=== PATIENT | male | born 1960 | race Caucasian/White ===

== ENCOUNTER 2017-05-02 14:26 | Emergency (ER) | payer BC, OTHER ==
[~2017-05-02] VITALS: Ht 175.3 cm; Wt 94.0 kg
[~2017-05-02 14:26] MED LIST: CELE200C PO; DULO20 PO; GABA400C5 PO; LISI-360 PO; TIZA4 PO
[2017-05-02 14:28] VITALS: BP 159/85; PULSE 91; RESP 18; TEMP 99; O2SAT 96
--- NOTE | 2017-05-02 15:11 | PD ---
Physical Exam Time Seen by Provider: 15:10 Narrative Pt presents to the ED for evaluation of right shoulder pain for several years that worsened over the last 2 days. States he cannot move his right shoulder due to pain. No new injury or trauma. States he took Tramadol without improvement of symptoms. VSS. Awaiting bed placement. Data Data Last Documented VS Vital Signs Date Time Temp Pulse Resp B/P Pulse Ox O2 Delivery O2 Flow Rate FiO2 05/02/17 14:28 99.0 91 18 159/85 96 Room Air MDM Supervised Visit with AUBREE: Sparkle Coe May 02, 2017 15:11
--- NOTE | 2017-05-02 15:37 | PD ---
HPI Chief Complaint: Musculoskeletal Complaint Time Seen by Provider: 15:35 Travel History International Travel<30 days: No Contact w/Intl Traveler<30days: No Traveled to known affect area: No History of Present Illness HPI 56-year-old male presents to emergency Department with complaint of worsening of right shoulder pain over the past 2-3 days. He has history of chronic right shoulder pain 2 years which he follows with Dr. Jimenez and his been told he needs a complete right shoulder replacement. Today while at work he had an to stop early because he could no longer lift right shoulder or arm. He denies paresthesias, loss of sensation to the affected extremity. Reports decreased range of motion and strength. Took a tramadol earlier this morning for symptom management. She does not take any other medications or tried any other treatments to alleviate his symptoms. Denies fever, vomiting. Has no other medical complaints. No other modifying factors or associated signs and symptoms. PFSH Past Medical History Arthritis: Yes Asthma: No Autoimmune Disease: No Blood Disorders: No Anxiety: Yes Depression: Yes Heart Rhythm Problems: No Cancer: No Cardiovascular Problems: Yes High Cholesterol: Yes Chemotherapy: No Chest Pain: No Congestive Heart Failure: No COPD: No Cerebrovascular Accident: No Diabetes: No Diminished Hearing: No Endocrine: No Gastrointestinal Disorders: Yes GERD: Yes Genitourinary: No Hepatitis: No Hiatal Hernia: Yes Hypertension: Yes Immune Disorder: No Implanted Vascular Access Dvce: Yes Kidney Stones: No Musculoskeletal: Yes Neurologic: Yes Psychiatric: Yes Reproductive: No Respiratory: No Migraines: Yes Radiation Therapy: No Renal Failure: No Seizures: No Sickle Cell Disease: No Sleep Apnea: No Thyroid Disease: No Ulcer: No Past Surgical History Abdominal Surgery: No AICD: No Arteriovenous Shunt: No Body Medical Devices: R HIP REPLACEMENT, FRANCA KNEE REPLACEMENT Cardiac Surgery: No Ear Surgery: No Endocrine Surgery: No Eye Surgery: No Genitourinary Surgery: No Gynecologic Surgery: No Insulin Pump: No Joint Replacement: Yes (RIGHT TOTAL HIP, BILATERAL TOTAL KNEE) Neurologic Surgery: No Oral Surgery: Yes (DENTAL IMPLANTS) Pacemaker: No Thoracic Surgery: No Other Surgery: Yes (franca knee replacement, r hip replacement) Social History Alcohol Use: Yes (DAILY) Tobacco Use: No Substance Use: Yes (LAST MONTH) Allergies-Medications (Allergen,Severity, Reaction): Coded Allergies: Acetaminophen (Verified Allergy, Intermediate, ABD PAIN, 08/01/16) Reported Meds & Prescriptions Reported Meds & Active Scripts Active [place] (Hydrocodone-Acetaminophen) 5-325 mg Tab 1 Tab PO Q4H PRN Ibuprofen 800 Mg Tab 800 Mg PO Q8H PRN Robaxin (Methocarbamol) 500 Mg Tab 500 Mg PO QID PRN Reported Cymbalta (Duloxetine HCl) 20 Mg Cap 20 Mg PO DAILY Lisinopril 10 mg (Lisinopril) 10 Mg Tab 1 Tab PO DAILY Celebrex (Celecoxib) 200 Mg Cap 400 Mg PO Gabapentin 400 Mg Cap 400 Mg PO TID Zanaflex 4 mg (Tizanidine HCl) 4 Mg Tab 1 Tab PO TID Review of Systems Except as stated in HPI: all other systems reviewed are Neg Physical Exam Narrative GENERAL: Well-nourished, well-developed male patient, in no acute distress SKIN: Warm and dry. HEAD: Atraumatic. Normocephalic. EYES: Pupils equal and round. No scleral icterus. No injection or drainage. ENT: Mucosa pink and moist. Airway patent. NECK: Supple. Trachea midline. CARDIOVASCULAR: Regular rate. RESPIRATORY: No accessory muscle use. GASTROINTESTINAL: Flat. MUSCULOSKELETAL: No obvious deformities. No clubbing. No cyanosis. No edema. Right shoulder with decreased range of motion; less than 45 abduction; right shoulder with decreased muscle tone and patient unable to perform range of motion; decreased blood donor unit assistant strength; shoulders equal; decreased strength. Right upper extremity supple and non-tense. 2+ radial pulse and sensory intact. NEUROLOGICAL: Awake and alert. Oriented 3. No obvious cranial nerve deficits. Motor grossly within normal limits. Normal speech. PSYCHIATRIC: Appropriate mood and affect; insight and judgment normal. Data Data Last Documented VS Vital Signs Date Time Temp Pulse Resp B/P Pulse Ox O2 Delivery O2 Flow Rate FiO2 05/02/17 14:28 99.0 91 18 159/85 96 Room Air Orders Shoulder, Complete (>2vws) (05/02/17 15:33) Ketorolac Inj (Toradol Inj) (05/02/17 15:45) Orphenadrine Inj (Norflex Inj) (05/02/17 15:45) Sling Cradle Arm (05/02/17 ) Sling Cradle Arm (05/02/17 ) MDM Medical Decision Making Medical Screen Exam Complete: Yes Emergency Medical Condition: Yes Medical Record Reviewed: Yes Differential Diagnosis Joint separation, rotator cuff tear, ligament tear Narrative Course 56-year-old male with increasing right shoulder pain x2-3 days. He has had chronic shoulder pain for 2 years. He now has decreased range of motion and strength to the affected extremity. I will do an x-ray to rule out joint separation. Toradol and Norflex administered in the ER. Right shoulder x-ray ordered. 1615: Right shoulder x-ray concludes: 4 views of the shoulder reveals deformity of the humeral head degenerative changes in the glenoid. Calcified lymph nodes are noted; There is evidence for second degree A/C separation Shoulder X-Ray 05/02/17 1533 Signed Impressions: Service Date/Time: Tuesday, May 02, 2017 15:45 - CONCLUSION: Degenerative changes as described above. There is no acute fracture. Ender Mao MD FACR I discussed the findings with Dr. Castro, my attending physician, and she recommended arm sling and for the patient to follow up outpatient. Arm sling provided for support. Instructed patient to follow up with orthopedics. [place] , ibuprofen, Robaxin prescribed for home. Instructed patient to follow up with primary care provider. Patient verbalizes understanding and agreement with treatment plan. Patient is medically cleared and stable for discharge. Discussed reasons to return to the emergency department. Patient agrees with treatment plan. The patients vital signs are stable and the patient is stable for outpatient follow-up and treatment. Patient discharged home, stable and in no acute distress. Diagnosis Primary Impression: Right shoulder injury Qualified Code: S49.91XA - Right shoulder injury, initial encounter Referrals: Orthopaedic Surgeon Primary Care Physician Patient Instructions: General Instructions, Shoulder Pain (ED), Shoulder Sprain (ED) Additional Instructions: Tylenol or ibuprofen as needed and as directed to reduce pain and inflammation Rest, ice, and compress extremity to decrease pain and inflammation Arm sling for support Avoid aggravating activity; increase activity as tolerated Follow-up with primary care provider Follow-up with orthopedic surgeon Return to the emergency department immediately with worsening symptoms Med/Other Pt SpecificInfo: Prescription(s) given Scripts Hydrocodone-Acetaminophen ([place])5-325 mg Tab1 Tab PO Q4H PRN (PAIN) #15 TAB Ref 0 Prov:Irasema Castro MD 05/02/17 Ibuprofen 800 Mg [id number] Mg PO Q8H PRN (PAIN SCALE 1 TO 10) #30 TAB Ref 0 Prov:Sparkle Frankel 05/02/17 Methocarbamol (Robaxin)500 Mg [id number] Mg PO QID PRN (MUSCLE SPASM) #30 TAB Ref 0 Prov:Sparkle Frankel 05/02/17 Disposition: 01 DISCHARGE HOME Condition: Stable Sparkle Frankel May 02, 2017 15:37
[2017-05-02] MEDS ORDERED: KETOROLAC TROMETHAMINE 60 MG/2 ML (IM) VIAL IM ONE (15:45)
[2017-05-02] MEDS ORDERED: ORPHENADRINE INJ 60 MG/2 ML AMP IM ONE (15:45)
--- NOTE | 2017-05-02 16:06 | RADRPT ---
EXAM DATE/TIME: 05/02/2017 15:45 [facility] COMPARISON: No previous studies available for comparison. INDICATIONS : Right shoulder pain for a very long time with no new injury. MEDICAL HISTORY : Hypertension. SURGICAL HISTORY : None. ENCOUNTER: Initial ACUITY: >1 year PAIN SCORE: 10/10 LOCATION: Right shoulder FINDINGS: 4 views of the shoulder reveals deformity of the humeral head degenerative changes in the glenoid. C alcified lymph nodes are noted. There is evidence for second degree A/C separation. The lung apex is clear. CONCLUSION: Degenerative changes as described above. There is no acute fracture. Ender Mao MD FACR on May 02, 2017 at 16:03 Board Certified Radiologist. This report was verified electronically.
[2017-05-02] MEDS ORDERED: IBUP800T23 PO (16:23)
[2017-05-02] MEDS ORDERED: ROBA500T PO (16:23)
[2017-05-02] MEDS ORDERED: NORC5TAB PO (16:24)
== END 2017-05-02 16:54 | disposition home or self-care (01) ==
LOC: NEPK 14:26
DX: S49.91XA Unspecified injury of right shoulder and upper arm, initial encounter (principal); Z96.653 Presence of artificial knee joint, bilateral; Z96.641 Presence of right artificial hip joint; F10.10 Alcohol abuse, uncomplicated; F41.8 Other specified anxiety disorders; E78.00 Pure hypercholesterolemia, unspecified; I10 Essential (primary) hypertension; F19.90 Other psychoactive substance use, unspecified, uncomplicated
CPT/HCPCS: 73030; 96372; 99284; J1885; J2360

== ENCOUNTER 2018-04-07 22:07 | Emergency (ER) | payer BC ==
[~2018-04-07] VITALS: Ht 175.3 cm; Wt 95.0 kg
[~2018-04-07 22:07] MED LIST changes: +IBUP1TAB7 PO; +NORC5TAB PO; +ROBA500T PO
[2018-04-07 22:44] VITALS: BP 155/95; PULSE 69; RESP 18; TEMP 98.9; O2SAT 98
[2018-04-07] MEDS ORDERED: KETOROLAC TROMETHAMINE 60 MG/2 ML (IM) VIAL IM ONE (23:15)
[2018-04-07] MEDS ORDERED: DEXAMETHASONE SOD PHOS 20 MG/5 ML VIAL IM ONE (23:15)
[2018-04-07] MEDS: traMADol HCL 50 MG TAB PO ONE (23:21)
[2018-04-07] MEDS ORDERED: ONDANSETRON ODT 4 MG TAB PO ONE (23:30)
--- NOTE | 2018-04-07 23:38 | PD ---
HPI Chief Complaint: Back/ Neck Pain or Injury Time Seen by Provider: 23:01 Travel History International Travel<30 days: No Contact w/Intl Traveler<30days: No Traveled to known affect area: No History of Present Illness HPI Patient is a 57-year-old male who presents the emergency room with his for evaluation of chronic back and neck pain. Patient reports that he has been having upper back pain as well as shoulder pain which has been ongoing since he was 19 years old. 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 Reports that he does follow-up with his orthopedic surgeon , Dr. Jimenez who recommended bilateral shoulder replacement. Patient reports that he is unable to have these bilateral shoulder replacements at this time. Reports that he has been taking tramadol for his pain. Patient reports that 2 days ago, he ran out of his tramadol, reports that since then, he has had exacerbation of his pain. Patient denies any inciting trauma or injury which causes this acute on chronic exacerbation of his neck and back pain and shoulder pain. Patient is unsure if he lifted something heavy which exacerbated his pain. Patient denies any fever/chills. Denies IVDA. Reports history of opiate abuse in the past he does not want any narcotic pain medications. PFSH Past Medical History Arthritis: Yes Asthma: No Autoimmune Disease: No Blood Disorders: No Anxiety: Yes Depression: Yes Heart Rhythm Problems: No Cancer: No Cardiovascular Problems: Yes High Cholesterol: Yes Chemotherapy: No Chest Pain: No Congestive Heart Failure: No COPD: No Cerebrovascular Accident: No Diabetes: No Diminished Hearing: No Endocrine: No Gastrointestinal Disorders: Yes GERD: Yes Genitourinary: No Hepatitis: No Hiatal Hernia: Yes Hypertension: Yes Immune Disorder: No Implanted Vascular Access Dvce: Yes Kidney Stones: No Musculoskeletal: Yes Neurologic: Yes Psychiatric: Yes Reproductive: No Respiratory: No Migraines: Yes Radiation Therapy: No Renal Failure: No Seizures: No Sickle Cell Disease: No Sleep Apnea: No Thyroid Disease: No Ulcer: No Tetanus Vaccination: < 5 Years Past Surgical History Abdominal Surgery: No AICD: No Arteriovenous Shunt: No Body Medical Devices: R HIP REPLACEMENT, FRANCA KNEE REPLACEMENT Cardiac Surgery: No Ear Surgery: No Endocrine Surgery: No Eye Surgery: No Genitourinary Surgery: No Gynecologic Surgery: No Insulin Pump: No Joint Replacement: Yes (RIGHT TOTAL HIP, BILATERAL TOTAL KNEE) Neurologic Surgery: No Oral Surgery: Yes (DENTAL IMPLANTS) Pacemaker: No Thoracic Surgery: No Other Surgery: Yes (franca knee replacement, r hip replacement) Social History Alcohol Use: Yes (occasionally) Tobacco Use: No (smokeless tobacco) Substance Use: No Allergies-Medications (Allergen,Severity, Reaction): Coded Allergies: acetaminophen (Unverified Allergy, Intermediate, ABD PAIN, 04/07/18) Reported Meds & Prescriptions Reported Meds & Active Scripts Active [place] (Hydrocodone-Acetaminophen) 5-325 mg Tab 1 Tab PO Q4H PRN Ibuprofen 800 Mg Tab 800 Mg PO Q8H PRN Robaxin (Methocarbamol) 500 Mg Tab 500 Mg PO QID PRN Reported Cymbalta (Duloxetine HCl) 20 Mg Cap 20 Mg PO DAILY Lisinopril 10 mg (Lisinopril) 10 Mg Tab 1 Tab PO DAILY Celebrex (Celecoxib) 200 Mg Cap 400 Mg PO Gabapentin 400 Mg Cap 400 Mg PO TID Zanaflex 4 mg (Tizanidine HCl) 4 Mg Tab 1 Tab PO TID Review of Systems General / Constitutional: No: Fever Eyes: No: Visual changes HENT: No: Headaches Cardiovascular: No: Chest Pain or Discomfort Respiratory: No: Shortness of Breath Gastrointestinal: No: Abdominal Pain Genitourinary: No: Dysuria Musculoskeletal: Positive: Pain (pain to shoulders, neck and upper back) Skin: No Rash Neurologic: No: Weakness Psychiatric: No: Depression Endocrine: No: Polydipsia Hematologic/Lymphatic: No: Easy Bruising Physical Exam Narrative GENERAL: Moderate distress SKIN: Focused skin assessment warm/dry. HEAD: Atraumatic. Normocephalic. EYES: Pupils equal and round. No scleral icterus. No injection or drainage. ENT: No nasal bleeding or discharge. Mucous membranes pink and moist. NECK: Trachea midline. No JVD. Patient with no midline tenderness, patient does have bilateral paraspinal tenderness. CARDIOVASCULAR: Regular rate and rhythm. No murmur appreciated. RESPIRATORY: No accessory muscle use. Clear to auscultation. Breath sounds equal bilaterally. GASTROINTESTINAL: Abdomen soft, non-tender, nondistended. Hepatic and splenic margins not palpable. MUSCULOSKELETAL: No obvious deformities. No clubbing. No cyanosis. No edema. Patient with no midline thoracic or lumbar tenderness, patient with paraspinal tenderness, patient with pain with range of motion to both shoulders, there is no obvious deformities or fractures or signs of infection. NEUROLOGICAL: Awake and alert. No obvious cranial nerve deficits. Motor grossly within normal limits. Normal speech. PSYCHIATRIC: Appropriate mood and affect; insight and judgment normal. Data Data Last Documented VS Vital Signs Date Time Temp Pulse Resp B/P (MAP) Pulse Ox O2 Delivery O2 Flow Rate FiO2 04/07/18 22:44 98.9 69 18 155/95 (115) [address] Cerv Spine W/O Contrast (04/07/18 23:13) Ct Thor Spine W/O Contrast (04/07/18 ) Ketorolac Inj (Toradol Inj) (04/07/18 23:15) Tramadol (Ultram) (04/07/18 23:15) Dexamethasone Inj (Decadron Inj) (04/07/18 23:15) Ondansetron Odt (Zofran Odt) (04/07/18 23:30) MDM Medical Decision Making Medical Screen Exam Complete: Yes Emergency Medical Condition: Yes Medical Record Reviewed: Yes Interpretation(s) Vital Signs Date Time Temp Pulse Resp B/P (MAP) Pulse Ox O2 Delivery O2 Flow Rate FiO2 04/07/18 22:44 98.9 69 18 155/95 (115) 98 Differential Diagnosis Arthritis, DJD, acute and chronic pain Narrative Course During the course of the patients emergency department visit, the patients history, examination, and differential diagnosis were reviewed with the patient. The patient was placed on a youth nutritional monitor with oximetry and frequent blood pressure monitoring. The patient was initially provided IM dexamethasone, IM Toradol, p.o. Zofran as well as tramadol Radiology studies were reviewed and remarkable for Last Impressions Cervical Spine CT 04/07/18 2313 Signed Impressions: CONCLUSION: 1. No evidence of fracture. 2. Degenerative findings. Central canal diameter within normal limits. Thoracic Spine CT 04/07/18 0000 Signed Impressions: CONCLUSION: Multilevel degenerative findings of the thoracic spine, most prominent at T10-1 1. Broad-based disc osteophyte complex and facet arthrosis at this level result s in mild central canal narrowing and moderate right neural foraminal narrowing . Patient with multilevel degenerative findings on the cervical as well as thoracic spine. Patient requests no narcotic pain medications, he is feeling better at this time. Patient will be discharged home with instructions to follow-up with his orthopedic surgeon. I will refill his prescription for his tramadol, he will return to the emergency room as needed. Patient was given copy of his studies at discharge as he will need to follow-up on all incidental findings from today. Diagnosis Primary Impression: Neck pain Additional Impressions: Degenerative joint disease Back pain Qualified Codes: M54.6 - Pain in thoracic spine; G89.29 - Other chronic pain Patient Instructions: General Instructions Additional Instructions: Please follow up with Dr. Jimenez as soon as possible Please follow up with your primary care doctor in 2-3 days Return to the ER if symptoms worsen or progress Return to the ER as needed Med/Other Pt SpecificInfo: Prescription(s) given Scripts Tramadol (Tramadol) 50 Mg Tab 50 MG PO Q6H Y for PAIN, #15 TAB 0 Refills Prov: Madison Beltran DO 04/08/18 Methylprednisolone Dosepak (Medrol Dosepak) 4 Mg Dspk 4 MG PO DIRECTED, #1 DSPK 0 Refills Per Pharmacist direction Prov: Madison Beltran DO 04/08/18 Disposition: 01 DISCHARGE HOME Condition: Stable Madison Beltran DO Apr 07, 2018 23:38
[2018-04-08] MEDS: traMADol HCL 50 MG TAB PO ONE
--- NOTE | 2018-04-08 00:16 | RADRPT ---
EXAM DATE: 04/07/2018 11:58 PM EDT AGE/SEX: 57 years / Male INDICATIONS: Chronic pain. CLINICAL DATA: This is the patient's initial encounter. Patient reports that signs and symptoms have been present for > 1 year and indicates a pain score of 10/10. MEDICAL/SURGICAL HISTORY: Hypertension. Gastroesophageal reflux disease. Cardiovascular disea se. . Bilateral knee replacements, shoulder surgery RADIATION DOSE: 19.91 CTDI (mGy) COMPARISON: No prior exams available for comparison. TECHNIQUE: Contiguous axial images were obtained using helical multirow detector technique. The vol umetric data was post-processed with multiplanar reconstruction in oblique axial, sagittal, and coron al planes. Using automated exposure control and adjustment of the mA and/or kV according to patient s ize, radiation dose was kept as low as reasonably achievable to obtain optimal diagnostic quality adolph ges. FINDINGS: Vertebrae: Normal vertebral body height. Mild bony hypertrophic change and calcification at the C1-2 articulation. Alignment: Normal. No subluxation. C2-3: Mild bilateral facet arthrosis. Central canal diameter within normal limits. Neural foraminal diameters within normal limits. C3-4: Mild bilateral facet arthrosis. Central canal diameter within normal limits. Neural foraminal diameters within normal limits. C4-5: Minimal right-sided uncovertebral joint spurring. Central canal diameter within normal limits. Neural foraminal diameters within normal limits. C5-6: Mild broad-based disc osteophyte complex with central prominence. Mild bilateral facet arthros is. Central canal diameter is within normal limits. Neural foraminal diameters within normal limits. C6-7: No evidence of focal disc protrusion. Central canal diameter within normal limits. Neural fora darren diameters within normal limits. C7-T1: No evidence of focal disc protrusion. Central canal diameter within normal limits. Neural for aminal diameters within normal limits. CONCLUSION: 1. No evidence of fracture. 2. Degenerative findings. Central canal diameter within normal limits. Electronically signed by: Luis Antonio Simms MD 04/08/2018 12:14 AM EDT
--- NOTE | 2018-04-08 00:23 | RADRPT ---
EXAM DATE: 04/08/2018 12:01 AM EDT AGE/SEX: 57 years / Male INDICATIONS: Chronic back pain. CLINICAL DATA: This is the patient's initial encounter. Patient reports that signs and symptoms have been present for > 1 year and indicates a pain score of 10/10. MEDICAL/SURGICAL HISTORY: Hypertension. Gastroesophageal reflux disease. Cardiovascular disease. . Bilateral knee replacements, shoulder surgery RADIATION DOSE: 31.06 CTDI (mGy) COMPARISON: No prior exams available for comparison. TECHNIQUE: Contiguous axial images were acquired using a multirow detector CT scanner without contra st. Multiplanar reconstruction in the sagittal and coronal planes was performed. Using automated exp osure control and adjustment of the mA and/or kV according to patient size, radiation dose was kept a s low as reasonably achievable to obtain optimal diagnostic quality images. FINDINGS: Vertebrae: Normal vertebral body height. Alignment: Normal. No subluxation. T1 - T2: Normal. T2 - T3: The thecal sac has a normal diameter. No evidence of disc bulge or protrusion. T3 - T4: Prominent right-sided costovertebral joint osteophytes. Central canal diameter within kayleigh l limits. Neural foraminal diameters within normal limits. T4 - T5: Moderate bilateral costovertebral joint osteophytes.Central canal diameter within normal li mits. Neural foraminal diameters within normal limits. T5 - T6: Moderate right-sided costovertebral joint osteophytes.Central canal diameter within normal limits. Neural foraminal diameters within normal limits. T6 - T7: Broad-based anterior endplate osteophyte and severe right-sided costovertebral joint osteop hytes. Central canal diameter within normal limits. Neural foraminal diameters within normal limits. T7 - T8: Anterior endplate osteophytes and prominent bilateral costovertebral joint osteophytes.Cent ral canal diameter within normal limits. Neural foraminal diameters within normal limits. T8 - T9: Anterior endplate osteophyte. Central canal diameter within normal limits. Neural foraminal diameters within normal limits. T9 - T10: Broad-based disc osteophyte complex and bilateral facet arthrosis. Central canal diameter within normal limits. Neural foraminal diameters within normal limits. T10 - T11: Broad-based disc osteophyte complex and bilateral facet arthrosis resulting in mild centr al canal narrowing. Moderate right neural foraminal narrowing. T11 - T12: Anterior endplate osteophyte. Central canal diameter within normal limits. Neural foramin al diameters within normal limits. T12 - L1: Anterior endplate of right. Central canal diameter within normal limits. Neural foraminal diameters within normal limits. CONCLUSION: Multilevel degenerative findings of the thoracic spine, most prominent at T10-11. Broad-based disc os teophyte complex and facet arthrosis at this level results in mild central canal narrowing and modera te right neural foraminal narrowing. Electronically signed by: Luis Antonio Simms MD 04/08/2018 12:21 AM EDT
[2018-04-08] MEDS ORDERED: MEDR4PAK PO (01:03)
[2018-04-08] MEDS ORDERED: TRAM50TA PO (01:03)
== END 2018-04-08 01:24 | disposition home or self-care (01) ==
LOC: NEPE 22:07
DX: M54.2 Cervicalgia (principal); M54.6 Pain in thoracic spine; G89.29 Other chronic pain; M19.90 Unspecified osteoarthritis, unspecified site; E78.00 Pure hypercholesterolemia, unspecified; I10 Essential (primary) hypertension; F32.9 Major depressive disorder, single episode, unspecified; Z79.899 Other long term (current) drug therapy
CPT/HCPCS: 72125; 72128; 96372; 99283; J1100; J1885

== ENCOUNTER 2018-04-17 23:49 | Observation (INO) | payer BC ==
[~2018-04-17] VITALS: Ht 170.2 cm; Wt 80.0 kg
[~2018-04-17 23:49] MED LIST changes: +MEDR4PAK PO; +TRAM50TA PO
[2018-04-17 23:58] VITALS: BP 118/73; PULSE 85; RESP 16; TEMP 98; O2SAT 98
[2018-04-18] VITALS (7 sets, daily range): BP systolic 124–143; BP diastolic 59–82; PULSE 67–84; RESP 12–24; TEMP 97.7–98.5; O2SAT 98–100
[2018-04-18] MEDS ORDERED: SODIUM CHLOR 0.9% 1000 ML INJ 1,000 ML IV SCH (00:13)
[2018-04-18] MEDS ORDERED: MORPHINE SULFATE 4 MG/ML INJ IV PUSH ONE (00:15)
[2018-04-18] MEDS ORDERED: SODIUM CHLORIDE 0.9% FLUSH 10 ML FLUSH IV FLUSH PRN ×2 (00:15→02:30)
[2018-04-18] MEDS ORDERED: ONDANSETRON ODT 4 MG TAB PO ONE ×2 (00:15→15:15)
--- NOTE | 2018-04-18 00:17 | PD ---
HPI Chief Complaint: GI Complaint Time Seen by Provider: 00:05 Travel History International Travel<30 days: No Contact w/Intl Traveler<30days: No Traveled to known affect area: No History of Present Illness HPI Patient comes in complaining of nausea vomiting and diarrhea has been going on for the past day and a half. Recently the diarrhea started to get bright red bloody. Patient has diffuse crampy abdominal pain, he rates as 7 out of 10 worse during bowel movement. Patient denies any alleviating or aggravating factors. However the patient does admit that now he has lightheadedness associated with activity such as walking. Patient denies any associated history such as syncope, chest pain, shortness of breath, runny nose/cough/sore throat. States allergy to Tylenol Past medical history significant for dental implants, migraine, hypercholesterolemia, hypertension, hiatal hernia, GERD, arthritis, depression, anxiety, PFSH Past Medical History Arthritis: Yes Asthma: No Autoimmune Disease: No Blood Disorders: No Anxiety: Yes Depression: Yes Heart Rhythm Problems: No Cancer: No Cardiovascular Problems: Yes High Cholesterol: Yes Chemotherapy: No Chest Pain: No Congestive Heart Failure: No COPD: No Cerebrovascular Accident: No Diabetes: No Diminished Hearing: No Endocrine: No Gastrointestinal Disorders: Yes GERD: Yes Genitourinary: No Hepatitis: No Hiatal Hernia: Yes Hypertension: Yes Immune Disorder: No Implanted Vascular Access Dvce: Yes Kidney Stones: No Musculoskeletal: Yes Neurologic: Yes Psychiatric: Yes Reproductive: No Respiratory: No Immunizations Current: Yes Migraines: Yes Radiation Therapy: No Renal Failure: No Seizures: No Sickle Cell Disease: No Sleep Apnea: No Thyroid Disease: No Ulcer: No Past Surgical History Abdominal Surgery: No AICD: No Arteriovenous Shunt: No Body Medical Devices: R HIP REPLACEMENT, FRANCA KNEE REPLACEMENT Cardiac Surgery: No Ear Surgery: No Endocrine Surgery: No Eye Surgery: No Genitourinary Surgery: No Gynecologic Surgery: No Insulin Pump: No Joint Replacement: Yes (RIGHT TOTAL HIP, BILATERAL TOTAL KNEE) Neurologic Surgery: No Oral Surgery: Yes (DENTAL IMPLANTS) Pacemaker: No Thoracic Surgery: No Other Surgery: Yes (franca knee replacement, r hip replacement) Social History Alcohol Use: Yes (occasionally) Tobacco Use: No (smokeless tobacco) Substance Use: No Allergies-Medications (Allergen,Severity, Reaction): Coded Allergies: acetaminophen (Unverified Allergy, Intermediate, ABD PAIN, 04/07/18) Reported Meds & Prescriptions Reported Meds & Active Scripts Active Robaxin (Methocarbamol) 500 Mg Tab 500 Mg PO QID PRN Reported Cymbalta (Duloxetine HCl) 20 Mg Cap 20 Mg PO DAILY Lisinopril 10 mg (Lisinopril) 10 Mg Tab 1 Tab PO DAILY Gabapentin 400 Mg Cap 400 Mg PO TID Zanaflex 4 mg (Tizanidine HCl) 4 Mg Tab 1 Tab PO TID Review of Systems General / Constitutional: No: Fever Eyes: No: Visual changes HENT: No: Headaches Cardiovascular: No: Chest Pain or Discomfort Respiratory: No: Shortness of Breath Gastrointestinal: Positive: Nausea, Vomiting, Diarrhea, Hematochezia Genitourinary: No: Dysuria Musculoskeletal: No: Pain Skin: No Rash Neurologic: No: Weakness Psychiatric: No: Depression Endocrine: No: Polydipsia Hematologic/Lymphatic: No: Easy Bruising Physical Exam Narrative GENERAL: SKIN: Warm and dry. HEAD: Atraumatic. Normocephalic. EYES: Pupils equal and round. No scleral icterus. No injection or drainage. ENT: No nasal bleeding or discharge. Mucous membranes pink and moist. NECK: Trachea midline. No JVD. CARDIOVASCULAR: Regular rate and rhythm. RESPIRATORY: No accessory muscle use. Clear to auscultation. Breath sounds equal bilaterally. GASTROINTESTINAL: Abdomen soft, non-tender, nondistended. MUSCULOSKELETAL: Extremities without clubbing, cyanosis, or edema. No obvious deformities. NEUROLOGICAL: Awake and alert. No obvious cranial nerve deficits. Motor grossly within normal limits. Five out of 5 muscle strength in the arms and legs. Normal speech. PSYCHIATRIC: Appropriate mood and affect; insight and judgment normal. Data Data Last Documented VS Orders Orders Complete Blood Count With Diff (04/18/18 00:13) Comprehensive Metabolic Panel (04/18/18 00:13) Lipase (04/18/18 00:13) Ct Abd/Pel W/O Iv Contrast (04/18/18:13) Iv Access Insert/Monitor (04/18/18 00:13) Ecg Monitoring (04/18/18 00:13) Oximetry (04/18/18 00:13) NPO (04/18/18 00:13) Morphine Inj (Morphine Inj) (04/18/18 00:15) Sodium Chlor 0.9% 1000 Ml Inj (Ns 1000 M (04/18/18 00:13) Sodium Chloride 0.9% Flush (Ns Flush) (04/18/18 00:15) Ondansetron Odt (Zofran Odt) (04/18/18 00:15) Ketorolac Inj (Toradol Inj) (04/18/18 00:45) Admit Order (Ed Use Only) (04/18/18 01:52) Labs Laboratory Tests Test 04/18/18 00:30 White Blood Count 7.5 TH/MM3 Red Blood Count 3.19 MIL/MM3 Hemoglobin 9.9 GM/DL Hematocrit 29.5 % Mean Corpuscular Volume 92.4 FL Mean Corpuscular Hemoglobin 31.1 PG Mean Corpuscular Hemoglobin Concent 33.6 % Red Cell Distribution Width 13.2 % Platelet Count 179 TH/MM3 Mean Platelet Volume 9.6 FL Neutrophils (%) (Auto) 57.4 % Lymphocytes (%) (Auto) 32.8 % Monocytes (%) (Auto) 7.2 % Eosinophils (%) (Auto) 1.5 % Basophils (%) (Auto) 1.1 % Neutrophils # (Auto) 4.3 TH/MM3 Lymphocytes # (Auto) 2.4 TH/MM3 Monocytes # (Auto) 0.5 TH/MM3 Eosinophils # (Auto) 0.1 TH/MM3 Basophils # (Auto) 0.1 TH/MM3 CBC Comment DIFF FINAL Differential Comment Blood Urea Nitrogen 38 MG/DL Creatinine 1.12 MG/DL Random Glucose 128 MG/DL Total Protein 4.9 GM/DL Albumin 2.5 GM/DL Calcium Level 7.0 MG/DL Alkaline Phosphatase 74 U/L Aspartate Amino Transf (AST/SGOT) 15 U/L Alanine Aminotransferase (ALT/SGPT) 25 U/L Total Bilirubin 0.2 MG/DL Sodium Level 146 MEQ/L Potassium Level 3.6 MEQ/L Chloride Level 109 MEQ/L Carbon Dioxide Level 23.7 MEQ/L Anion Gap 13 MEQ/L Estimat Glomerular Filtration Rate 67 ML/MIN Protein Corrected Calcium 8.2 MG/DL Lipase 184 U/L [facility] Medical Decision Making Medical Screen Exam Complete: Yes Emergency Medical Condition: Yes Medical Record Reviewed: Yes Differential Diagnosis GI bleed versus colitis versus diverticulitis versus enteritis Narrative Course CBC shows evidence of anemia 9.9/29.5 No leukocytosis, normal platelet count, no left shift. Patient had normal liver and pancreatic enzymes Low calcium. CT abdomen read by radiologist as a negative noncontrast study without etiology for rectal bleeding identified. Patient was admitted to observation to the medical team for further evaluation of acute GI bleed with anemia. Diagnosis Primary Impression: Acute GI bleed Additional Impression: Anemia secondary to #1 Admitting Information Admitting Physician Requests: Observation Scripts Pantoprazole (Protonix) 40 Mg Tab 40 MG PO BID for Reflux, #60 TAB 0 Refills Prov: Landry Nichols MD 04/19/18 Jeremiah George MD Apr 18, 2018 00:17
[2018-04-18] MEDS ORDERED: KETOROLAC TROMETHAMINE 30 MG/ML (IVP) VIAL IV PUSH ONE (00:45)
[2018-04-18 00:48] LABS: AUTOMATED NEUTROPHIL # 4.3 TH/MM3 (1.8-7.7); BASOPHIL # 0.1 TH/MM3 (0-0.2); BASOPHIL % 1.1 % (0.0-2.0); EOSINOPHIL # 0.1 TH/MM3 (0-0.4); EOSINOPHIL % 1.5 % (0.0-4.0); HEMATOCRIT 29.5 % (39.0-51.0); HEMOGLOBIN 9.9 GM/DL (13.0-17.0); LYMPH % 32.8 % (9.0-44.0); LYMPHOCYTE # 2.4 TH/MM3 (1.0-4.8); MEAN CELL VOLUME 92.4 FL (80.0-100.0); MEAN CORPUSCULAR HEMOGLOBIN 31.1 PG (27.0-34.0); MEAN CORPUSCULAR HGB CONC 33.6 % (32.0-36.0); MEAN PLATELET VOLUME 9.6 FL (7.0-11.0); MONO % 7.2 % (0.0-8.0); MONOCYTE # 0.5 TH/MM3 (0-0.9); NEUT % 57.4 % (16.0-70.0); PLATELET COUNT 179 TH/MM3 (150-450); RED BLOOD COUNT 3.19 MIL/MM3 (4.50-5.90); RED CELL DISTRIBUTION WIDTH 13.2 % (11.6-17.2); WHITE BLOOD COUNT 7.5 TH/MM3 (4.0-11.0)
--- NOTE | 2018-04-18 01:12 | RADRPT ---
EXAM DATE: 04/18/2018 12:55 AM EDT AGE/SEX: 57 years / Male INDICATIONS: Rectal bleeding. CLINICAL DATA: This is the patient's initial encounter. Patient reports that signs and symptoms have been present for 1 day and indicates a pain score of 5/10. MEDICAL/SURGICAL HISTORY: Cardiovascular disease. Hypertension. Hiatal hernia. None. RADIATION DOSE: 17.53 CTDI (mGy) COMPARISON: No prior exams available for comparison. TECHNIQUE: Multiple contiguous axial images were obtained through the abdomen. Images were obtained using multiple row detector helical technique. Using automated exposure control and adjustment of the mA and/or kV according to patient size, radiation dose was kept as low as reasonably achievable to o btain optimal diagnostic quality images. DICOM format image data is available electronically for rev iew and comparison. FINDINGS: Lower Lungs: The visualized lower lungs are clear. Liver: The liver has a homogeneous density without space-occupying lesion. There is no dilation of th e biliary tree. Spleen: Homogeneous density without enlargement. Pancreas: Unremarkable without mass or calcification. Kidneys: Normal in size and shape. No evidence of mass or hydronephrosis. Adrenal Glands: Unremarkable. Aorta: The aorta and proximal iliac vessels are grossly unremarkable without aneurysmal dilation. Bowel/Mesentery: The bowel loops are grossly unremarkable. The cecum and sigmoid colon have a normal configuration. Abdominal Wall: Intact. Retroperitoneum: No evidence of adenopathy in the retrocrural, para-aortic, or deep pelvic regions. Bladder: Contours are smooth. Reproductive Organs: No abnormal masses or calcifications seen. Inguinal: The inguinal region is unremarkable without evidence of adenopathy. Bony Structures: Unremarkable. CONCLUSION: 1. Negative CT Abdomen and Pelvis non contrast. No etiology for rectal bleeding is identified. [facility] Electronically signed by: Jamil Linder MD 04/18/2018 1:11 AM EDT
[2018-04-18 01:23] LABS: ALBUMIN 2.5 GM/DL (3.4-5.0); BICARBONATE 23.7 MEQ/L (21.0-32.0); CREATININE 1.12 MG/DL (0.60-1.30)
[2018-04-18 01:25] LABS: CALCIUM-PROTEIN CORRECTED 8.2 MG/DL (8.5-10.1); TOTAL BILIRUBIN ADULT 0.2 MG/DL (0.2-1.0); TOTAL PROTEIN 4.9 GM/DL (6.4-8.2)
[2018-04-18] MEDS ORDERED: NALOXONE HCL 0.4 MG/ML AMP IV PUSH PRN (02:30)
[2018-04-18] MEDS ORDERED: DICL75TA PO (02:34)
[2018-04-18] MEDS: SODIUM CHLOR 0.9% 1000 ML INJ 1,000 ML IV SCH ×3 (03:15→21:09)
--- NOTE | 2018-04-18 03:30 | HHI.HP ---
HPI Service [facility] Primary Care Physician Michelle Don D.O. Admission Diagnosis GI BLEED WITH ANEMIA Diagnoses: Travel History International Travel<30 Days: No Contact w/Intl Traveler <30 Da: No Traveled to Known Affected Are: No History of Present Illness 57-year-old male with a past medical history significant for chronic pain presents the emergency department for the evaluation of hematemesis and hematochezia. The patient reports he started feeling fatigued earlier in the day yesterday and had emesis and diarrhea after work. He reports his emesis was coffee-ground and he had bright red blood in his diarrhea. The patient has chronic pain and started taking diclofenac 1 week ago. He denies any chest pain or shortness of breath. Endorses crampy abdominal pain. No fever/chills. Review of Systems Except as stated in HPI: all other systems reviewed are Neg Past Family Social History Past Medical History Chronic pain Past Surgical History Bilateral knee replacements Right hip replacement Reported Medications Reported Meds & Active Scripts Active Tramadol (Tramadol HCl) 50 Mg Tab 50 Mg PO Q6H PRN Medrol Dosepak (Methylprednisolone) 4 Mg Dspk 4 Mg PO DIRECTED Per Pharmacist direction [place] (Hydrocodone-Acetaminophen) 5-325 mg Tab 1 Tab PO Q4H PRN Ibuprofen 800 Mg Tab 800 Mg PO Q8H PRN Robaxin (Methocarbamol) 500 Mg Tab 500 Mg PO QID PRN Reported Diclofenac Sodium DR (Diclofenac Sodium) 75 Mg Tabdr 75 Mg PO DAILY Cymbalta (Duloxetine HCl) 20 Mg Cap 20 Mg PO DAILY Lisinopril 10 mg (Lisinopril) 10 Mg Tab 1 Tab PO DAILY Celebrex (Celecoxib) 200 Mg Cap 400 Mg PO Gabapentin 400 Mg Cap 400 Mg PO TID Zanaflex 4 mg (Tizanidine HCl) 4 Mg Tab 1 Tab PO TID Allergies: Coded Allergies: acetaminophen (Unverified Allergy, Intermediate, ABD PAIN, 04/07/18) Family History Coronary artery disease in both parents Social History Occasional alcohol. Denies tobacco and illicit drugs. History of opiate abuse. Physical Exam Vital Signs Vital Signs Date Time Temp Pulse Resp B/P (MAP) Pulse Ox O2 Delivery O2 Flow Rate FiO2 04/18/18 00:32 18 98 Room Air 04/18/18 00:01 16 04/17/18 23:58 98.0 85 16 118/73 (88) 98 Physical Exam GENERAL: male lying in bed SKIN: No rashes, ecchymoses or lesions. Cool and dry. HEAD: Atraumatic. Normocephalic. No temporal or scalp tenderness. EYES: Pupils equal round and reactive. Extraocular motions intact. No scleral icterus. No injection or drainage. ENT: Nose without bleeding, purulent drainage or septal hematoma. Throat without erythema, tonsillar hypertrophy or exudate. Uvula midline. Airway patent. NECK: Trachea midline. No JVD or lymphadenopathy. Supple, nontender, no meningeal signs. CARDIOVASCULAR: Regular rate and rhythm without murmurs, gallops, or rubs. RESPIRATORY: Clear to auscultation. Breath sounds equal bilaterally. No wheezes , rales, or rhonchi. GASTROINTESTINAL: Abdomen soft, tender to palpation in the lower quadrant, nondistended. No hepato-splenomegaly, or palpable masses. No guarding. MUSCULOSKELETAL: Extremities without clubbing, cyanosis, or edema. No joint tenderness, effusion, or edema noted. No calf tenderness. NEUROLOGICAL: Awake and alert. Cranial nerves II through XII intact. Motor and sensory grossly within normal limits. Normal speech. Laboratory Laboratory Tests Test 04/18/18 00:30 White Blood Count 7.5 Red Blood Count 3.19 Hemoglobin 9.9 Hematocrit 29.5 Mean Corpuscular Volume 92.4 Mean Corpuscular Hemoglobin 31.1 Mean Corpuscular Hemoglobin Concent 33.6 Red Cell Distribution Width 13.2 Platelet Count 179 Mean Platelet Volume 9.6 Neutrophils (%) (Auto) 57.4 Lymphocytes (%) (Auto) 32.8 Monocytes (%) (Auto) 7.2 Eosinophils (%) (Auto) 1.5 Basophils (%) (Auto) 1.1 Neutrophils # (Auto) 4.3 Lymphocytes # (Auto) 2.4 Monocytes # (Auto) 0.5 Eosinophils # (Auto) 0.1 Basophils # (Auto) 0.1 CBC Comment DIFF FINAL Differential Comment Blood Urea Nitrogen 38 Creatinine 1.12 Random Glucose 128 Total Protein 4.9 Albumin 2.5 Calcium Level 7.0 Alkaline Phosphatase 74 Aspartate Amino Transf (AST/SGOT) 15 Alanine Aminotransferase (ALT/SGPT) 25 Total Bilirubin 0.2 Sodium Level 146 Potassium Level 3.6 Chloride Level 109 Carbon Dioxide Level 23.7 Anion Gap 13 Estimat Glomerular Filtration Rate 67 Protein Corrected Calcium 8.2 Lipase 184 Result Diagram: 04/18/182904/18/1829 Caprini VTE Risk Assessment Caprini VTE Risk Assessment: No/Low Risk (score <= 1) Caprini Risk Assessment Model Point Value = 1 Point Value = 2 Point Value = 3 Point Value = 5 Age 41-60 Minor surgery BMI > 25 kg/m2 Swollen legs Varicose veins or History of unexplained or recurrent spontaneous Oral contraceptives or hormone replacement Sepsis (< 1 month) Serious lung disease, including pneumonia (< 1 month) Abnormal pulmonary function Acute myocardial infarction Congestive heart failure (< 1 month) History of inflammatory bowel disease Medical patient at bed rest Age 61-74 Arthroscopic surgery Major open surgery (> 45 min) Laparoscopic surgery (> 45 min) Malignancy Confined to bed (> 72 hours) Immobilizing plaster cast Central venous access Age >= 75 History of VTE Family history of VTE Factor V Leiden Prothrombin [id number] Lupus anticoagulant Anticardiolipin antibodies Elevated serum homocysteine Heparin-induced thrombocytopenia Other congenital or acquired thrombophilia Stroke (< 1 month) Elective arthroplasty Hip, pelvis, or leg fracture Acute spinal cord injury (< 1 month) Prophylaxis Regimen Total Risk Factor Score Risk Level Prophylaxis Regimen 0-1 Low Early ambulation 2 Moderate Order ONE of the following: *Sequential Compression Device (SCD) *Heparin 5000 units SQ BID 3-4 Higher Order ONE of the following medications: *Heparin 5000 units SQ TID *Enoxaparin/Lovenox 40 mg SQ daily (WT < 150 kg, CrCl > 30 mL/min) *Enoxaparin/Lovenox 30 mg SQ daily (WT < 150 kg, CrCl > 10-29 mL/min) *Enoxaparin/Lovenox 30 mg SQ BID (WT < 150 kg, CrCl > 30 mL/min) AND/OR *Sequential Compression Device (SCD) 5 or more Highest Order ONE of the following medications: *Heparin 5000 units SQ TID (Preferred with Epidurals) *Enoxaparin/Lovenox 40 mg SQ daily (WT < 150 kg, CrCl > 30 mL/min) *Enoxaparin/Lovenox 30 mg SQ daily (WT < 150 kg, CrCl > 10-29 mL/min) *Enoxaparin/Lovenox 30 mg SQ BID (WT < 150 kg, CrCl > 30 mL/min) AND *Sequential Compression Device (SCD) Assessment and Plan Assessment and Plan Assessment/plan: 1. GI bleed/anemia Likely secondary to NSAID use Protonix ggt Serial H&H Transfuse as needed Gastroenterology consulted, appreciate recommendations 2. Chronic pain Patient's requests the patient does not receive opiates as he has a previous opiate addiction Avoid NSAIDs given GI bleed FEN N.p.o. Electrolytes: Monitor and replete as needed Holding pharmacologic anticoagulation for GI bleed NS 100 cc/hour Madison Martinez MD Apr 18, 2018 03:30
[2018-04-18 04:21] LABS: HEMATOCRIT 28.9 % (39.0-51.0); HEMOGLOBIN 9.9 GM/DL (13.0-17.0)
[2018-04-18] MEDS ORDERED: PANTOPRAZOLE INJ 80 MG in SODIUM CHLORIDE 0.9% INJ 35 ML IV ONE (04:28)
[2018-04-18] MEDS ORDERED: PANTOPRAZOLE SODIUM 40 MG VIAL IV PUSH SCH (06:00)
[2018-04-18] MEDS: PANTOPRAZOLE INJ 80 MG in SODIUM CHLORIDE 0.9% INJ 100 ML IV SCH ×3 (08:49→21:09)
--- NOTE | 2018-04-18 08:54 | PD.CONS ---
HPI History of Present Illness This is a 57 year old M with PMH significant for chronic pain who presented to the ER last night with complaints of vomiting and diarrhea. States symptoms began at 2 in the afternoon yesterday when he arrived home from work. He was vomiting and having diarrhea simultaneously, reports about 4-5 episodes of each , none since arrival to the hospital. States the emesis appeared to be black, denies any BRB. Also complaining of diarrhea, states BRB. Reports subjective fevers, did not check his temperature and afebrile on admission. Deneis history of C. Diff, sick contacts, recent travel. Associated lower mid abdominal pain, constant, described as cramping, not worse with bowel movements. Denies any history of GIB. Has never had EGD or colonoscopy. Of note , pt was recently on a steroid pack for back and shoulder pain. Also was prescribed Diclofenac by his PCP. Reports social ETOH. Denies smoking. Reports having a prescription for medical marijuana but states has not used any in over a month. Denies family history significant for UC, Crohns, and colon cancer. (Annie Ivory) PFSH Past Medical History Chronic pain Past Surgical History Bilateral knee replacements Right hip replacement (Annie Ivory) Coded Allergies: acetaminophen (Unverified Allergy, Intermediate, ABD PAIN, 04/07/18) Family History Coronary artery disease in both parents Social History Occasional alcohol. Denies tobacco. History of opiate abuse. Reports prescription for medical marijuana but hasn't used any in over a month. (Annie Ivory) Review of Systems Gastrointestinal: COMPLAINS OF: Abdominal pain, Bloody stools, Diarrhea, Nausea , Vomiting, DENIES: Black stools, Constipation, Difficulty Swallowing, Odynophagia, Swelling of Abdomen, Heartburn, Hematemesis (Annie Ivory) GI Exam Vitals I&O Vital Signs Date Time Temp Pulse Resp B/P (MAP) Pulse Ox O2 Delivery O2 Flow Rate FiO2 04/18/18 07:13 74 18 124/76 (92) 98 Room Air 04/18/18 00:32 18 98 Room Air 04/18/18 00:01 16 04/17/18 23:58 98.0 85 16 118/73 (88) 98 I/O 6/20/18 6/20/04/17/18 04/18/18 04/18/18 04/18/18 07:00 15:00 23:00 07:00 15:00 23:00 Intake Total 1035 ml Balance 1035 ml Intake IV Total 1035 ml Imaging Last Impressions Abdomen/Pelvis CT 04/18/18 0013 Signed Impressions: CONCLUSION: 1. Negative CT Abdomen and Pelvis non contrast. No etiology for rectal bleedin g is identified. 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 Laboratory Test 04/18/18 00:30 04/18/18 04:08 White Blood Count 7.5 TH/MM3 Red Blood Count 3.19 MIL/MM3 Hemoglobin 9.9 GM/DL 9.9 GM/DL Hematocrit 29.5 % 28.9 % Mean Corpuscular Volume 92.4 FL Mean Corpuscular Hemoglobin 31.1 PG Mean Corpuscular Hemoglobin Concent 33.6 % Red Cell Distribution Width 13.2 % Platelet Count 179 TH/MM3 Mean Platelet Volume 9.6 FL Neutrophils (%) (Auto) 57.4 % Lymphocytes (%) (Auto) 32.8 % Monocytes (%) (Auto) 7.2 % Eosinophils (%) (Auto) 1.5 % Basophils (%) (Auto) 1.1 % Neutrophils # (Auto) 4.3 TH/MM3 Lymphocytes # (Auto) 2.4 TH/MM3 Monocytes # (Auto) 0.5 TH/MM3 Eosinophils # (Auto) 0.1 TH/MM3 Basophils # (Auto) 0.1 TH/MM3 CBC Comment DIFF FINAL Differential Comment Blood Urea Nitrogen 38 MG/DL Creatinine 1.12 MG/DL Random Glucose 128 MG/DL Total Protein 4.9 GM/DL Albumin 2.5 GM/DL Calcium Level 7.0 MG/DL Alkaline Phosphatase 74 U/L Aspartate Amino Transf (AST/SGOT) 15 U/L Alanine Aminotransferase (ALT/SGPT) 25 U/L Total Bilirubin 0.2 MG/DL Sodium Level 146 MEQ/L Potassium Level 3.6 MEQ/L Chloride Level 109 MEQ/L Carbon Dioxide Level 23.7 MEQ/L Anion Gap 13 MEQ/L Estimat Glomerular Filtration Rate 67 ML/MIN Protein Corrected Calcium 8.2 MG/DL Lipase 184 U/L Physical Examination HEENT: Normocephalic; atraumatic CHEST: Even/unlabored CARDIAC: RRR ABDOMEN: Soft, nondistended, mild lower mid abdominal tenderness, bowel sounds active EXTREMITIES: No clubbing, cyanosis, or edema. SKIN: Normal; no rash; no jaundice. DEBONER: Alert and oriented times three. (Annie Ivory) Assessment and Plan Plan Assessment: - Coffee ground emesis- reports symptoms began at 2 pm yesterday after returning from work. Reports subjective fevers, afebrile on admission and did not check his temperature at home. Denies history of GIB. Has never had EGD. Pt finished steroid pack two days ago, was on it for back and shoulder pain. Also has a prescription for Diclofenac from his PCP. Social ETOH. Denies smoking - Diarrhea with bright red blood- 4-5 episodes since 2 pm yesterday. Denies sick contacts, history of C. Diff, recent travel. Has never had colonoscopy - Lower mid abdominal pain, constant, described as cramping sensation, not worse with BMs. CT abdomen and pelvis WO IV contrast --> Negative. 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 Plan: EGD today Obtain consent Keep NPO Protonix gtt Stool studies ? need for colonoscopy based on findings Further recommendations to follow Pt has been seen and examined by myself and Dr. Ramirez and this note is written on her behalf (Annie Ivory) Physician Comments seen, examined agree with above (Parisa Ramirez MD) Annie Ivory Apr 18, 2018 08:54 Parisa Ramirez MD Apr 18, 2018 16:29
[2018-04-18] MEDS: SODIUM CHLORIDE 0.9% FLUSH 10 ML FLUSH IV FLUSH SCH ×2 (09:00→21:09)
[2018-04-18] MEDS ORDERED: LIDOCAINE HCL 1% PF 5 ML SYRINGE OTHER ONE (12:00)
[2018-04-18] MEDS ORDERED: PROPOFOL 200 MG/20 ML AMP IV ONE (12:00)
[2018-04-18] MEDS ORDERED: ePHEDrine/NS 25 MG/5 ML SYRINGE IV ONE (12:00)
[2018-04-18] MEDS ORDERED: EPINEPHrine HCL (1:10,000) 1 MG/10 ML SYRINGE OTHER ONE (14:17)
--- NOTE | 2018-04-18 14:35 | GIPROC ---
[facility] [address] [facility]. [facility], [address] EGD PROCEDURE REPORT EXAM DATE: 04/18/2018 PATIENT NAME: Bethel Koenig MR #: [id number] BIRTHDATE: 1960 ATTENDING: Parisa Ramirez MD ORDER #: [id number] SOFTWARE COMPUTER SPECIALIST: Sally Simms and Cynthia Jenkins STATUS: inpatient INDICATIONS: The patient is a 57 yr old male here for an EGD due to anemia, gi bleeding PROCEDURE PERFORMED: EGD w/ biopsy EGD w/ directed submucosal injection(s), any substance EGD w/ control of bleeding MEDICATIONS: None and Per Anesthesia. TOPICAL ANESTHETIC: none CONSENT: The patient understands the risks and benefits of the procedure and understands that these risks include, but are not limited to: sedation, allergic reaction, infection, perforation and/or bleeding. Alternative means of evaluation and treatment include, among others: physical exam, x-rays, and/or surgical intervention. The patient elects to proceed with this endoscopic procedure. medical equipment was checked for proper function. Hand hygiene and appropriate measures for infection prevention was taken. After the risks, benefits and alternatives of the procedure were thoroughly explained, Informed consent was verified, confirmed and timeout was successfully executed by the treatment team. The patient was anesthetized with topical anesthesia and the Pentax [id number] endoscope was introduced through the mouth and advanced to the second portion of the duodenum. Retroflexed views revealed a hiatal hernia The gastroscope was then slowly withdrawn and removed. Multiple duodenal ulcers-small, superficial in duodenal bulb-ulcer with vissible vessel-gold probe used for ablation, epinephrine 1:10,000 -8 cc, 4 clips applied, one dislodged gastritis antrum-biopsy esophagitis distal esophagus-biopsy old blood suctioned. ADVERSE EVENTS: There were no complications. IMPRESSIONS: 1. Multiple duodenal ulcers-small, superficial in duodenal bulb-ulcer with vissible vessel-gold probe used for ablation, epinephrine 1:10,000 -8 cc, 4 clips applied, one dislodged gastritis antrum-biopsy esophagitis distal esophagus-biopsy old blood suctioned 2. Retroflexed views revealed a hiatal hernia RECOMMENDATIONS: 1. Await biopsy results. Biopsy results will not be ready for 7-10 days. If you don't hear from us in two weeks, call our office for biopsy results. 2. Anti-reflux regimen 3. Panoprazole avoid nsaids transfuse to keep hb more than 8 clear liquid diet monitor hb PATIENT CONDITION: stable DISPOSITION: Inpatient REPEAT EXAM: Return 6 weeks EGD Parisa Ramirez MD eSigned: Parisa Ramirez MD 04/18/2018 2:35 PM cc: PATIENT NAME: Bethel Koenig MR#: [id number]
[2018-04-18] MEDS ORDERED: HYDROmorphone HCL PF 2 MG/ML VIAL IV PUSH ONE (15:15)
[2018-04-18] MEDS ORDERED: ALUMINUM/MAGNESIUM/SIMETH 30 ML CUP PO ONE (15:30)
--- NOTE | 2018-04-18 15:46 | HHI.FPPN ---
Addendum to progress note ADDENDUM Reason for addendum: Additonal documentation Additional information Patient is status post EGD with epinephrine injection. Is complaining of a lot of pain. No further vomiting Abdomen soft, nondistended. Patient lying in bed, awake, alert. is hesitant about giving him narcotics due to patient's history. Patient evaluated at the bedside with Dr. Ramirez. Vital signs are stable at this time. Will monitor. Landry Nichols MD Apr 18, 2018 15:46
[2018-04-18 16:49] LABS: HEMATOCRIT 25.5 % (39.0-51.0); HEMOGLOBIN 8.6 GM/DL (13.0-17.0)
--- NOTE | 2018-04-18 18:48 | EKG ---
Date Performed: 04/17/2018 Time Performed: 23:56:38 PTAGE: 57 years EKG: Sinus rhythm NORMAL ECG Since the PREVIOUS TRACING , no significant change noted PREVIOUS TRACIN08/01/2016 14.23 DOCTOR: Sarai Soliz Interpretating Date/Time 04/18/2018 18:45:45
[2018-04-18 19:15] LABS: HEMATOCRIT 26.7 % (39.0-51.0); HEMOGLOBIN 8.9 GM/DL (13.0-17.0)
[2018-04-18] MEDS: HYDROmorphone HCL PF 2 MG/ML VIAL IV PUSH PRN (22:15)
[2018-04-19] VITALS: BP 101/57; PULSE 80; RESP 14; TEMP 98.2; O2SAT 98
[2018-04-19] MEDS: HYDROmorphone HCL PF 2 MG/ML VIAL IV PUSH PRN ×4 (01:48→13:29)
[2018-04-19 04:00] VITALS: BP 120/65; PULSE 67; RESP 14; TEMP 98.1; O2SAT 98
[2018-04-19 05:48] LABS: AUTOMATED NEUTROPHIL # 4.3 TH/MM3 (1.8-7.7); BASOPHIL # 0.1 TH/MM3 (0-0.2); BASOPHIL % 0.9 % (0.0-2.0); EOSINOPHIL # 0.2 TH/MM3 (0-0.4); EOSINOPHIL % 2.3 % (0.0-4.0); HEMATOCRIT 23.5 % (39.0-51.0); HEMOGLOBIN 7.9 GM/DL (13.0-17.0); LYMPH % 32.1 % (9.0-44.0); LYMPHOCYTE # 2.3 TH/MM3 (1.0-4.8); MEAN CELL VOLUME 93.4 FL (80.0-100.0); MEAN CORPUSCULAR HEMOGLOBIN 31.5 PG (27.0-34.0); MEAN CORPUSCULAR HGB CONC 33.7 % (32.0-36.0); MEAN PLATELET VOLUME 9.4 FL (7.0-11.0); MONO % 5.4 % (0.0-8.0); MONOCYTE # 0.4 TH/MM3 (0-0.9); NEUT % 59.3 % (16.0-70.0); PLATELET COUNT 153 TH/MM3 (150-450); RED BLOOD COUNT 2.51 MIL/MM3 (4.50-5.90); RED CELL DISTRIBUTION WIDTH 13.4 % (11.6-17.2); WHITE BLOOD COUNT 7.2 TH/MM3 (4.0-11.0)
[2018-04-19 06:12] LABS: BICARBONATE 23.5 MEQ/L (21.0-32.0); CALCIUM 7.4 MG/DL (8.5-10.1); CREATININE 0.83 MG/DL (0.60-1.30)
[2018-04-19 06:38] LABS: CALCIUM-PROTEIN CORRECTED 8.7 MG/DL (8.5-10.1); TOTAL PROTEIN 4.8 GM/DL (6.4-8.2)
[2018-04-19 08:00] VITALS: BP 116/68; PULSE 73; RESP 17; TEMP 98.1; O2SAT 97
[2018-04-19] MEDS: SODIUM CHLORIDE 0.9% FLUSH 10 ML FLUSH IV FLUSH SCH (08:37)
[2018-04-19] MEDS: SODIUM CHLOR 0.9% 1000 ML INJ 1,000 ML IV SCH (09:15)
[2018-04-19] MEDS: PANTOPRAZOLE INJ 80 MG in SODIUM CHLORIDE 0.9% INJ 100 ML IV SCH (09:45)
--- NOTE | 2018-04-19 10:13 | HHI.PR ---
Subjective Remarks Nursing denies any deterioration since last night. Patient reports his abdominal pain is there but much improved since admission, says it is "nothing compared to what it was yesterday" after the EGD procedure. Objective Vital Signs Date Time Temp Pulse Resp B/P (MAP) Pulse Ox O2 Delivery O2 Flow Rate FiO2 04/19/18 08:00 98.1 73 17 116/68 (84) 97 04/19/18 04:00 98.1 67 14 120/65 (83) 98 04/19/18 00:00 98.2 80 14 101/57 (72) 98 04/18/18 20:00 98.5 81 12 125/59 (81) 98 04/18/18 16:00 98.0 78 24 143/75 (97) 100 04/18/18 15:52 20 04/18/18 14:40 97.8 68 18 169/99 (122) 99 04/18/18 12:00 97.8 84 19 133/82 (99) 98 04/18/18 10:23 I/O 04/18/18 04/18/18 04/18/18 04/19/18 04/19/18 04/19/18 07:00 15:00 23:00 07:00 15:00 23:00 Intake Total 1035 ml 800 ml 1601 ml Output Total 325 ml Balance 1035 ml 800 ml 1276 ml Intake Oral 480 ml IV Total 1035 ml 1121 ml Other 800 ml Output Urine Total 325 ml Result Diagram: 04/19/1851104/19/18 0512 Objective Remarks Abdomen soft, only minimally tender to palpation, nondistended Sitting up in bed, no acute distress, pleasant mood A/P Assessment and Plan GI bleed -Likely secondary to NSAID use -Protonix ggt -Serial H&H slight drop down to 7.9 also likely showing mild hemodilution -Status post EGD with epinephrine injection; s/p EGD w/ biopsy EGD w/ directed submucosal injection(s), any substance EGD w/ control of bleeding -will advance to full liquid Abdominal pain -Likely secondary to gastritis and epinephrine injection, will stop IV Dilaudid and see if p.o. Mylanta controls it as the patient's wants us to avoid opioids -avoid NSAIDS possible discharge today if cleared w/ GI Addendum: Repeat hemoglobin is stable. Stable for discharge from GI standpoint. Patient has met maximal benefit from hospitalization and is clinically stable for discharge Landry Nichols MD Apr 19, 2018 10:13
[2018-04-19] MEDS ORDERED: PROT40TA PO (10:15)
[2018-04-19] MEDS ORDERED: ALUMINUM/MAGNESIUM/SIMETH 30 ML CUP PO SCH (11:15)
[2018-04-19 12:00] VITALS: BP 113/60; PULSE 77; RESP 17; TEMP 98; O2SAT 98
--- NOTE | 2018-04-19 13:07 | HHI.DCPOC ---
Discharge Care Plan Diagnosis: (1) Upper GI bleed (2) Acute upper GI bleed Additional Problems AVOID all NSAIDS including but not limited to Advil, ibuprofen, Aleve, naproxen , Naprosyn, aspirin, Goody powders, BC powders. Goals to Promote Your Health * To prevent worsening of your condition and complications * To maintain your health at the optimal level Directions to Meet Your Goals Take your medications as prescribed Follow your dietary instruction Follow activity as directed Keep your appointments as scheduled Take your immunizations and boosters as scheduled If your symptoms worsen call your PCP, if no PCP go to Urgent Care Center or Emergency Room Smoking is Dangerous to Your Health. Avoid second hand smoke Call the 24-hour hour crisis hotline for domestic abuse at Landry Nichols MD Apr 19, 2018 13:07
[2018-04-19 13:55] LABS: AUTOMATED NEUTROPHIL # 4.6 TH/MM3 (1.8-7.7); BASOPHIL # 0.1 TH/MM3 (0-0.2); EOSINOPHIL # 0.2 TH/MM3 (0-0.4); EOSINOPHIL % 2.1 % (0.0-4.0); HEMATOCRIT 23.4 % (39.0-51.0); HEMOGLOBIN 7.9 GM/DL (13.0-17.0); LYMPH % 31.3 % (9.0-44.0); LYMPHOCYTE # 2.4 TH/MM3 (1.0-4.8); MEAN CELL VOLUME 93.2 FL (80.0-100.0); MEAN CORPUSCULAR HEMOGLOBIN 31.4 PG (27.0-34.0); MEAN CORPUSCULAR HGB CONC 33.7 % (32.0-36.0); MEAN PLATELET VOLUME 9.1 FL (7.0-11.0); MONO % 5.5 % (0.0-8.0); MONOCYTE # 0.4 TH/MM3 (0-0.9); NEUT % 60.1 % (16.0-70.0); PLATELET COUNT 166 TH/MM3 (150-450); RED BLOOD COUNT 2.51 MIL/MM3 (4.50-5.90); RED CELL DISTRIBUTION WIDTH 13.4 % (11.6-17.2); WHITE BLOOD COUNT 7.6 TH/MM3 (4.0-11.0)
--- NOTE | 2018-04-19 15:16 | HHI.GIFU ---
Subjective Remarks Patient is sitting up in the bed playing video games on his phone Currently denies any nausea or vomiting Does note some dark specks in his stool and mild minimal left lower quadrant pain Afebrile (Donna Walker) Objective Vitals I&O Vital Signs Date Time Temp Pulse Resp B/P (MAP) Pulse Ox O2 Delivery O2 Flow Rate FiO2 04/19/18 12:00 98.0 77 17 113/60 (77) 98 04/19/18 08:00 98.1 73 17 116/68 (84) 97 04/19/18 04:00 98.1 67 14 120/65 (83) 98 04/19/18 00:00 98.2 80 14 101/57 (72) 98 04/18/18 20:00 98.5 81 12 125/59 (81) 98 04/18/18 16:00 98.0 78 24 143/75 (97) 100 04/18/18 15:52 20 I/O 04/18/18 04/18/18 04/18/18 04/19/18 04/19/18 04/19/18 06:59 14:59 22:59 06:59 14:59 22:59 Intake Total 1035 ml 800 ml 1601 ml Output Total 325 ml Balance 1035 ml 800 ml 1276 ml Intake Oral 480 ml IV Total 1035 ml 1121 ml Other 800 ml Output Urine Total 325 ml Laboratory Laboratory Tests Test 04/18/18 16:05 04/18/18 18:50 04/19/18 05:12 04/19/18 13:41 Hemoglobin 8.6 8.9 7.9 7.9 Hematocrit 25.5 26.7 23.5 23.4 White Blood Count 7.2 7.6 Red Blood Count 2.51 2.51 Mean Corpuscular Volume 93.4 93.2 Mean Corpuscular Hemoglobin 31.5 31.4 Mean Corpuscular Hemoglobin Concent 33.7 33.7 Red Cell Distribution Width 13.4 13.4 Platelet Count 153 166 Mean Platelet Volume 9.4 9.1 Neutrophils (%) (Auto) 59.3 60.1 Lymphocytes (%) (Auto) 32.1 31.3 Monocytes (%) (Auto) 5.4 5.5 Eosinophils (%) (Auto) 2.3 2.1 Basophils (%) (Auto) 0.9 1.0 Neutrophils # (Auto) 4.3 4.6 Lymphocytes # (Auto) 2.3 2.4 Monocytes # (Auto) 0.4 0.4 Eosinophils # (Auto) 0.2 0.2 Basophils # (Auto) 0.1 0.1 CBC Comment DIFF FINAL DIFF FINAL Differential Comment Blood Urea Nitrogen 18 Creatinine 0.83 Random Glucose 87 Total Protein 4.8 Calcium Level 7.4 Sodium Level 146 Potassium Level 3.9 Chloride Level 114 Carbon Dioxide Level 23.5 Anion Gap 9 Estimat Glomerular Filtration Rate 95 Protein Corrected Calcium 8.7 Imaging Last Impressions Abdomen/Pelvis CT 04/18/18 0013 Signed Impressions: CONCLUSION: 1. Negative CT Abdomen and Pelvis non contrast. No etiology for rectal bleedin g is identified. 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 Physical Exam HEENT: normocephalic; atraumatic; no jaundice. Throat is clear. NECK: Supple CHEST: Even, unlabored, CARDIAC: Regular rate and rhythm ABDOMEN: Soft, nondistended, occasional left lower quadrant discomfort, bowel sounds are present in all four quadrants. EXTREMITIES: No clubbing, cyanosis, or edema. SKIN: Pale, no rash VAMP MAKER: Awake, answers simple questions appropriately (Donna Walker) Assessment and Plan Plan Assessment: - Coffee ground emesis- reports symptoms began at 2 pm yesterday after returning from work. Reports subjective fevers, afebrile on admission and did not check his temperature at home. Denies history of GIB. Has never had EGD. Pt finished steroid pack two days ago, was on it for back and shoulder pain. Also has a prescription for Diclofenac from his PCP. Social ETOH. Denies smoking - Diarrhea with bright red blood- 4-5 episodes since 2 pm yesterday. Denies sick contacts, history of C. Diff, recent travel. Has never had colonoscopy - Lower mid abdominal pain, constant, described as cramping sensation, not worse with BMs. CT abdomen and pelvis WO IV contrast --> Negative. 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 04/19/2018 patient is resting in the bed denies any current nausea or vomiting. Does note some dark specks in his stool and occasional left lower quadrant discomfort. States he is feeling gradually better EGD performed on 04/18/2018 findings include multiple duodenal ulcers small and superficial duodenal bulb ulcer visible vessel, ablation performed and 4 clips were applied 1 dislodged Gastritis and from esophagitis distal, multiple biopsies done, hiatal hernia. Any stool studies are pending. Labs show current hemoglobin at 7.9 which is trending down over the past 24 hours, patient is asymptomatic with any dizziness or syncopal episodes. Patient continues to have anemia probable secondary to blood loss, current hemoglobin 7.9. 04/18/18, CT of the abdomen unremarkable Plan Diet clear liquids PPI Antireflux regimen Avoid NSAIDs Monitor hemoglobin and other labs transfuse to maintain hemoglobin greater than 8. Supportive care Repeat EGD in 6 weeks Patient was seen per myself and Dr. Ramirez, this note was written on her behalf (Donna Walker) Physician Comments seen, examined agree with above mild drop in hb -no active bleeding advance diet we will repeat hb -if stable ok to dc home from [facility] next week iron supplements (Parisa Ramirez MD) Donna Walker Apr 19, 2018 15:16 Parisa Ramirez MD Apr 19, 2018 16:49
[2018-04-19 16:09] VITALS: BP 120/70; PULSE 78; RESP 20; TEMP 97; O2SAT 98
== END 2018-04-19 17:18 | disposition home or self-care (01) ==
LOC: NEPC 23:49 → NEDA 04-18 01:53 → NEDH 04-18 05:56 → N03B 04-18 10:31
PROVIDERS: ADMIT Family Medicine; ATTEND Family Medicine
DX: K26.9 Duodenal ulcer, unspecified as acute or chronic, without hemorrhage or perforation (principal); K29.70 Gastritis, unspecified, without bleeding; K21.0 Gastro-esophageal reflux disease with esophagitis; K20.0 Eosinophilic esophagitis; K44.9 Diaphragmatic hernia without obstruction or gangrene; K92.1 Melena; K92.0 Hematemesis; D64.9 Anemia, unspecified; G89.29 Other chronic pain; I10 Essential (primary) hypertension; E78.00 Pure hypercholesterolemia, unspecified; F41.9 Anxiety disorder, unspecified; F32.9 Major depressive disorder, single episode, unspecified; M19.90 Unspecified osteoarthritis, unspecified site; Z79.899 Other long term (current) drug therapy
CPT/HCPCS: 00731; 43239; 43270; 74176; 80048; 80053; 83690; 84155; 85014; 85018; 85025; 88305; 88312; 93005; 96361; 96365; 96366; 96374; 96375; 96376; 99285; C9113; G0378; J0171; J1170; J1885; J7030